=== PATIENT | male | born 1975 | race Hispanic/Latino ===

== ENCOUNTER → 2024-10-12 | Day surgery (SDC) | payer BC, OTHER ==
[~2024-10-12] MED LIST: LACTATED RINGER'S 1,000 ML ONE; LIDOCAINE HCL 2% LOCAL INJ 5 ML SDV VIAL INJ ONE; PROPOFOL IV EMULSION 10 MG/ML 20 ML VIAL ONE
[2024-10-12 07:20] VITALS: TEMP 98.4
[2024-10-12 07:50] VITALS: BP 131/84; PULSE 74; RESP 16; O2SAT 98
== END | disposition home or self-care (01) ==
LOC: OR 05:16
PROVIDERS: ATTEND Internal Medicine Gastroenterology
DX: Z12.11 Encounter for screening for malignant neoplasm of colon (principal); K63.5 Polyp of colon; K57.30 Diverticulosis of large intestine without perforation or abscess without bleeding; K64.8 Other hemorrhoids; E66.01 Morbid (severe) obesity due to excess calories; Z68.31 Body mass index [BMI] 31.0-31.9, adult; Z71.3 Dietary counseling and surveillance; R94.31 Abnormal electrocardiogram [ECG] [EKG]; Z01.810 Encounter for preprocedural cardiovascular examination
CPT/HCPCS: 45385; 88305; 93005; J2003; J2704; J7121; 45380